=== PATIENT | male | born 1985 | race Caucasian/White ===

== ENCOUNTER 2021-06-04 19:40 | Emergency (ER) | payer OTHER ==
[~2021-06-04] VITALS: Ht 175.3 cm; Wt 88.5 kg
[2021-06-04 20:00] VITALS: BP 134/90
--- NOTE | 2021-06-04 20:00 | NUR ---
TO BED AMBULATORY
--- NOTE | 2021-06-04 20:07 | NUR ---
36 YO M BIB SELF WITH C/C OF 10/10 ABD PAIN X3DAYS. PT STATES HE HAS BEEN DIAGNOSED WITH GERD AND H. PYLORI IN THE PAST AND FEELS THATS WHATS CAUSING HIS PAIN NOW. +N/V, UNABLE TO HOLD LIQUID DOWN. ABD IS SOFT AND TENDER, BOWEL SOUNDX4 ACTIVE. DENIES BLOOD IN STOOL AND EMESIS. ALL NEEDS MET AT THIS TIME. BED LOCKED IN LOWEST POSITION, SIDE RAILS X1. HX: GERD, H.PYLORI RX: PANTOPRAZOLE ALLERG: HALOPERIDOL AND PCN
[2021-06-04] MEDS ORDERED: DICYCLOMINE HCL LIQUID 20 MG, ALUMINUM HYD/MAG/SIMETHICONE 30 ML, LIDOCAINE VISCOUS 2% ... PO ONE ×3 (20:45)
[2021-06-04] MEDS ORDERED: ALUMINUM HYD/MAG/SIMETHICONE 30 ML UDC ONE (20:50)
[2021-06-04] MEDS ORDERED: DICYCLOMINE HCL LIQUID 10 MG/5 ML UDC ONE ×2 (20:50→20:58)
--- NOTE | 2021-06-04 21:01 | NUR ---
PT TAKEN TO [facility] VIA WHEEL CHAIR. STATE HE WOULD GVEN URINE SAMPLE WHEN HE COMES BACK IF HE CAN.
[2021-06-04 21:02] LABS: BASOPHILS # (AUTO) 0.1 K/uL (0.00-0.22); EOSINOPHILS # (AUTO) 0.3 K/uL (0-0.4); EOSINOPHILS % (AUTO) 3.8 % (0.0-4.0); HEMATOCRIT 40.6 % (36-52); HEMOGLOBIN 13.9 g/dL (12.0-18.0); LYMPHOCYTES # (AUTO) 1.5 K/uL (2.0-11.5); MEAN CORPUSCULAR HEMOGLOBIN 33 pg (27-31); MEAN CORPUSCULAR HGB CONC 34 g/dL (33-37); MEAN CORPUSCULAR VOLUME 94.8 fL (80-94); MONOCYTES # (AUTO) 0.7 K/uL (0.8-1.0); MONOCYTES % (AUTO) 7.3 % (1.7-9.3); NEUTROPHILS # (AUTO) 6.5 K/uL (1.8-7.7); NEUTROPHILS % (AUTO) 70.9 % (42.2-75.2); PLATELET COUNT (AUTO) 282 K/uL (140-450); RED BLOOD CELL COUNT(AUTO) 4.29 MIL/uL (4.20-6.10); RED CELL DISTRIBUTION WIDTH 13.2 % (11.6-13.7); WHITE BLOOD COUNT (AUTO) 9.1 K/uL (4.8-10.8)
--- NOTE | 2021-06-04 21:11 | NUR ---
PT BACK FROM RAD.
--- NOTE | 2021-06-04 21:11 | NUR ---
REMINDED PT TO PLEASE GIVEN URINE. STATED HE DOESNT HAVE TO GO RIGHT NOW. GIVEN WATER TO ENCOURAGE URINATION.
[2021-06-04 21:23] LABS: ALBUMIN 3.3 g/dL (3.4-5.0); ANION GAP 11.2 (8-16); CARBON DIOXIDE 28.5 mmol/L (21-32); POTASSIUM 3.7 mmol/L (3.5-5.1); TOTAL BILIRUBIN 0.5 mg/dL (0.0-1.0)
--- NOTE | 2021-06-04 21:29 | NUR ---
PT IS SLEEPING. EQUAL RISE AND FALL OF CHEST WALL, IN STABLE CONDITION. BED LOCKED IN LPWEST POSITION, SIDE RAILS X1.
[2021-06-04] MEDS ORDERED: MAGN1.7529 PO (22:04)
[2021-06-04 22:10] VITALS: BP 134/90
--- NOTE | 2021-06-04 22:10 | NUR ---
Patient discharged with v/s stable. Written and verbal after care instructions given and explained. Patient alert, oriented and verbalized understanding of instructions. Ambulatory with steady gait. All questions addressed prior to discharge. ID band removed. Patient advised to follow up with PMD. Rx of MAG CITRATE given. Patient educated on indication of medication including possible reaction and side effects. Opportunity to ask questions provided and answered.
== END 2021-06-04 22:10 | disposition home or self-care (01) ==
LOC: MED 19:40
DX: K29.70 Gastritis, unspecified, without bleeding (principal); K59.00 Constipation, unspecified; J45.909 Unspecified asthma, uncomplicated; I10 Essential (primary) hypertension; Z79.899 Other long term (current) drug therapy; Z88.0 Allergy status to penicillin; Z88.5 Allergy status to narcotic agent
CPT/HCPCS: 36415; 74021; 80053; 83690; 85025; 99284

== ENCOUNTER 2022-12-01 10:00 | Outpatient (CLI) | payer OTHER ==
[~2022-12-01 10:00] MED LIST: MAGN296S2 PO
== END 2022-12-01 23:59 | disposition home or self-care (01) ==
LOC: MLB 10:00 → EDSTATUS 12-03 15:50
PROVIDERS: ATTEND Internal Medicine Gastroenterology
DX: Z01.818 Encounter for other preprocedural examination (principal); Z20.822 Contact with and (suspected) exposure to COVID-19